=== PATIENT | female | born 1950 | race Caucasian/White ===

== ENCOUNTER → 2018-02-26 | Outpatient (CLI) | payer MEDICARE, BC ==
[~2018-02-26] MED LIST: ASPI81TA94 PO; BIOT10TA3 PO; CALC-797 PO; CALC-857 PO; CALC500T6 PO; CHOL100058 PO; CHOL200022 PO; CINN500C12 PO; CLI150 PO; CLIN300C99 PO; CYAN100015 PO; DOC100 PO; FLAX100041 PO; GLUC-255 PO; LETPT GT; LETPT PO; LOR5 PO; LUTE1BEA PO; LUTE20TA PO; MULT-1058 PO; NONE CURRENT; PER PO; PLAN450T3 PO; UBID1CAP PO; UBID1CAP94 PO; VIT1CAPS9 PO
--- NOTE | 2018-02-26 09:56 | RADIOLOGY IMAGING REPORT ---
FACILITY: [facility] - [place] PATIENT NAME: Hilaria Padilla : 1950 MR: [id number] V: [id number] EXAM DATE: [id number] ORDERING PHYSICIAN: ANGELA PAEZ TECHNOLOGIST: Location: Patient: Hilaria Padilla : 1950 Visit/Account:[id number] Date of Sevice: 02/26/2018 DEXA Scan Clinical history: Breast cancer on Femara therapy. Comparison: DEXA scan from 02/21/2016. LUMBAR SPINE: The bone mineral density (BMD) measured from L1-L4 correlates with a Z-score of 0.3 and a T-score of -0.6 which is Normal as defined by the World Health Organization. The corresponding risk of fracture in the lumbar spine is 1-2 times increased compared with a young adult reference population. This v alue has decrease by 2.4 % since the prior study. More than 5% change is considered significant. HIP: Bone mineral density (BMD) measured in the LEFT total hip region correlates with a Z-score -1.1 and a T-score of -1.9 which is osteopenia as defined by the World Health Organization. The corresponding risk of fracture in the hip is 3-4 times increased compared to a young adult reference population. Th is value has decrease by 2.3 % since the prior study. More than 5% change is considered significant. T score left femoral neck -2 Bone mineral density (BMD) measured in the Femoral Neck region measures 0.763 g/cm?. IMPRESSION: 1. Lumbar spine: Normal. There has been 2.4% decrease in the bone mineral density since the previou s exam. 2. Left Total Hip: Osteopenia. There has been 2.3% decrease in the bone mineral density since the p revious exam. 3. Femoral Neck: Bone Mineral Density is 0.763 g/cm? The next DEXA scan of this patient should include the following sites: L1-L4 and the left hip. FRAX? WHO Fracture Risk Assessment Tool link: <http://www.shef.ac.uk/FRAX/tool.jsp?locationValue=9> PLEASE NOTE: 1) The World Health Organization defines low BMD as follows: T-score Normal > -1 Osteopenia < -1 and > -2.5 Osteoporosis < -2.5 without fractures Established osteoporosis < -2.5 with fractures 2) In general, you may wish to consider: Diagnosis Treatment Follow-up DEXA Normal BMD Prevention 2-3 years Osteopenia Prevention/therapy 1-2 years Osteoporosis Therapy Yearly 3) Fracture risk estimated from the T-score is more accurate for vertebral fractures (often spontane ous) than for hip fractures. Report Dictated By: Jo Ann Patrick MD at 02/26/2018 9:49 AM Report E-Signed By: Jo Ann Patrick MD at 02/26/2018 9:51 AM WSN:[email or web address]
== END ==
LOC: RAD 08:48
PROVIDERS: ATTEND Nurse Practitioner Family
DX: Z13.820 Encounter for screening for osteoporosis (principal); M85.88 Other specified disorders of bone density and structure, other site; C50.919 Malignant neoplasm of unspecified site of unspecified female breast
CPT/HCPCS: 77080

== ENCOUNTER 2018-03-12 13:20 | Outpatient (RCR) | payer MEDICARE, BC ==
[2018-03-02 10:53] LABS: PLATELET COUNT, AUTOMATED 171 K/uL (150-450)
[2018-03-02 11:10] VITALS: BP 124/82
[2018-03-12 13:25] VITALS: BP 157/86
--- NOTE | 2018-03-12 19:11 | ONCOLOGY FOLLOW UP NOTE ---
EVENT DATE: March 12, 2018 DIAGNOSIS Stage IIIA (pT3 pN1a M0) right breast cancer. CHIEF COMPLAINT Patient is here today for followup of her right breast cancer. ONCOLOGY HISTORY: PRESENTATION Abnormal screening mammogram which showed 2.88 cm dense lesion in the right breast in the upper outer quadrant close to the nipple areolar complex and the midline suspicious for malignancy. DIAGNOSTIC EVALUATION Ultrasonography of the right breast done on August 17, 2012 did reveal 2.5 x 2.3 x 2.4 cm irregular hypoechoic mass with acoustic shadowing at 12 o'clock position in the right breast. PROCEDURE 1. Right breast biopsy done on August 19, 2012 which came back positive for infiltrating ductal carcinoma grade 2/3, ER positive, AZ negative, HER2/abner negative. 2. Right lumpectomy with right sentinel lymph node biopsy and right lymph node dissection done on September 01, 2012. PATHOLOGY Pathology from her lumpectomy came back positive for 5 cm invasive ductal carcinoma with negative margins. Two lymph nodes came back positive for metastasis. ER positive, AZ negative, HER2/abner negative. STAGE Stage IIIA (pT3 pN1a M0). TREATMENT 1. Adjuvant chemotherapy with four courses of AC regimen with adriamycin and Cyclophosphamide received between October 08, 2012 through November 19, 2012. 2. Chemotherapy with four courses of dose dense Taxol received between December 03, 2012 through January 14, 2013. 3. Adjuvant hormonal therapy with Letrozole received between 2012 through March 2018. HISTORY OF PRESENT ILLNESS Patient is a 67-year-old postmenopausal woman. Patient is here today for followup of her right breast cancer after five years of adjuvant had hormonal therapy with Letrozole. She is doing fine currently, except for occasional epistaxis. She has also pain in the knees, ankles, calves, lower back worsened with Letrozole. She bruises easily. PAST MEDICAL HISTORY 1. Hypercholesterolemia. 2. Right breast cancer. PAST SURGICAL HISTORY 1. Carpal tunnel release surgery of the right hand. 2. Tonsillectomy at the age of 18. SOCIAL HISTORY Patient is . She does not have children. She is a public health inspector , teaching art for about 35 years. Denies any abuse of alcohol, tobacco or drugs. She drinks about one beer per week. FAMILY HISTORY Father of prostate cancer. CURRENT MEDICATIONS 1. Multivitamins. 2. Vitamin B12 1000 mcg daily. 3. Cinnamon 500 mg half capsule daily. 4. Vitamin D3 1000 units two capsules daily. 5. Citracal with vitamin D 200/250 one tablet daily. 6. CoQ10 100 mg once daily. 7. Plant sterol shaylee 450 mg daily. 8. Aspirin 81 mg daily. 9. Glucosamine chondroitin sulfate one capsule daily. ALLERGIES PENICILLIN, which caused hives and swelling. REVIEW OF SYSTEMS CONSTITUTIONAL: No appetite or weight change. No fever, chills or sweating. No recent infection. HEENT: Ears: No tinnitus or hearing problem. Nose: No nasal discharge. She has occasional epistaxis. Throat: No sore throat or mouth ulcers. Eyes: No diplopia or visual changes. RESPIRATORY: No shortness of breath. No cough, expectoration or hemoptysis. CARDIOVASCULAR: No chest pain, orthopnea, or paroxysmal nocturnal dyspnea (PND) . No edema. No palpitations. GASTROINTESTINAL: No nausea or vomiting. No diarrhea or constipation. No change in bowel movements. No heartburn or swallowing difficulties. No abdominal pain. No jaundice. No hematemesis, melena or rectal bleeding. GENITOURINARY: No hematuria or dysuria. MUSCULOSKELETAL: She has pain in the knees, ankles, calves and lower back. NEUROLOGICAL: No tingling or numbness in the hands or feet. No headaches or convulsions. HEMATOLOGIC/LYMPHATIC: No bleeding. She bruises easily. No weakness or fatigue. No enlarged lymph nodes. SKIN: No skin rash or lumps. PSYCHIATRIC: No anxiety or depression. PHYSICAL EXAMINATION GENERAL: Looks stable. Well-developed, well-nourished, and in no acute distress. VITAL SIGNS: Blood pressure 157/86, pulse 57 per minute, respirations 16 per minute, temperature 97.3, pulse oximetry 98% on room air. HEENT: Head: Atraumatic. No sinus tenderness to palpation. Eyes: No icterus or conjunctivitis. Mouth and throat: No oral thrush or mucositis. NECK: Supple. No cervical or supraclavicular lymphadenopathy. LUNGS: Clear to auscultation and percussion bilaterally. HEART: Regular rate and rhythm. No gallops, murmurs, clicks or rubs. ABDOMEN: Soft and lax. No tenderness. No hepatosplenomegaly. No masses. EXTREMITIES: No cyanosis, clubbing or edema. LYMPHATICS: No peripheral lymphadenopathy. NEUROLOGICAL: Conscious, alert and oriented times three. No focal motor or sensory deficits. PSYCHIATRIC: Mood and affect appear normal. SKIN: No skin rash, bruise or purpuric eruption. ASSESSMENT Stage IIIA (pT3 pN1a M0) right invasive carcinoma status post lumpectomy, sentinel lymph node biopsy and right axillary node dissection on September 01, 2012. Final pathology was postiive for a 5 cm invasive ductal carcinoma with negative margins. Two lymph nodes were positive. ER positive, AZ negative, HER2/abner negative. The patient received four courses of dose dense AC between October 08, 2012 through November 19, 2012. She finished four courses of dose dense Taxol between November 30, 2012 through January 14, 2013. After that, the patient received three years of adjuvant hormonal therapy between 2014 through 2017. The patient, at the end of her adjuvant hormonal therapy, and because of her side effect of musculoskeletal pain and joint pain, would like to stop her treatment at this point. Patient was offered to do the breast cancer index tissue testing to see if extended hormonal therapy would be beneficial or not, but the patient decided to stop her treatment. I am planning to continue followup. As the patient is five years after her diagnosis, I am planning to see her once yearly. I will see her next time after her mammogram so we can see her each year after her annual mammogram, so I am planning on seeing her August 2018 with CBC, chem panel, CA27-29, and annual mammogram. Patient currently in complete remission and doing fine. PLAN 1. Continue followup. 2. Patient to return August 2018 with CBC, chem panel, CA27-29, and annual mammogram. 3. Continue vitamin D supplement. 4. Patient to contact us with any new concerns or complaints. CECE
== END 2018-04-08 13:22 | disposition home or self-care (01) ==
LOC: ONC 13:20
PROVIDERS: ATTEND Nurse Practitioner Family
DX: C50.911 Malignant neoplasm of unspecified site of right female breast (principal); Z17.0 Estrogen receptor positive status [ER+]; C77.3 Secondary and unspecified malignant neoplasm of axilla and upper limb lymph nodes; Z92.21 Personal history of antineoplastic chemotherapy; Z78.0 Asymptomatic menopausal state; Z79.899 Other long term (current) drug therapy
CPT/HCPCS: 36415; 85025; G0463; 82040; 82247; 82310; 82374; 82435; 82565; 82947; 84075; 84132; 84155; 84295; 84450; 84460; 84520; 99212

== ENCOUNTER → 2018-09-04 | Outpatient (CLI) | payer MEDICARE, BC ==
[~2018-09-04] MED LIST changes: +CHOL200018 PO; -CHOL200022 PO
--- NOTE | 2018-09-04 11:28 | RADIOLOGY IMAGING REPORT ---
FACILITY: [facility] - [place] PATIENT NAME: SHILO GUZMAN : [id number] MR: [id number] V: [id number] EXAM DATE: [id number] ORDERING PHYSICIAN: ANGELA PAEZ TECHNOLOGIST: Constanza Nassar PROCEDURE:BILATERAL DIGITAL SCREENING MAMMOGRAM WITH CAD ASSISTED INTERPRETATION & 3D TOMOSYNTHESIS COMPARISON:Prior mammograms 09/03/17, 08/26/16, 08/23/15, 01/24/15, 08/22/14, 02/21/14. INDICATIONS:SCREENING FINDINGS: A small to moderate amount of fibroglandular tissue is seen throughout the breasts. Again noted is postsurgical scaring with architectural distortion in the upper outer quadrant of the Right breast. There is no demonstration of malignant appearing mass, malignant appearing calcifications or other secondary sign of malignancy in either breast. DIAGNOSTIC CATEGORY 2--BENIGN FINDING. RECOMMENDATIONS: ROUTINE MAMMOGRAM AND CLINICAL EVALUATION. IMPRESSION: BIRADS 2: Benign finding. No significant abnormality is seen. Dictated by: Jo Ann Patrick M.D. on 09/04/2018 at 10:41 Transcribed by: GILMA on 09/04/2018 at 10:47 Approved by: Jo Ann Patrick M.D. on 09/04/2018 at 11:27 [facility]
== END ==
LOC: MAMO 03:22
PROVIDERS: ATTEND Nurse Practitioner Family
DX: Z12.31 Encounter for screening mammogram for malignant neoplasm of breast (principal)
CPT/HCPCS: 77063; 77067